=== PATIENT | male | born 2000 | race Caucasian/White ===

== ENCOUNTER 2020-11-23 13:21 | Emergency (ER) | payer OTHER ==
[~2020-11-23] VITALS: Ht 180.3 cm; Wt 71.2 kg
[2020-11-23 13:21] VITALS: BP 136/80
--- NOTE | 2020-11-23 13:21 | NUR ---
PT BROUGHT TO BED 9 VIA [facility]
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
[2020-11-23] MEDS: NACL 0.9% 1,000 ML IV ONE (14:10)
--- NOTE | 2020-11-23 14:10 | NUR ---
LABS COLLECTED AND WALKED TO LAB.
[2020-11-23 14:30] LABS: BASOPHILS % (AUTO) 0.7 % (0.0-2.0); EOSINOPHILS # (AUTO) 0.1 K/uL (0-0.4); EOSINOPHILS % (AUTO) 1.9 % (0.0-4.0); HEMATOCRIT 40.2 % (36-52); HEMOGLOBIN 13.3 g/dL (12.0-18.0); LYMPHOCYTES # (AUTO) 1.3 K/uL (2.0-11.5); MEAN CORPUSCULAR HEMOGLOBIN 29 pg (27-31); MEAN CORPUSCULAR HGB CONC 33 g/dL (33-37); MEAN CORPUSCULAR VOLUME 86.6 fL (80-94); MONOCYTES # (AUTO) 0.4 K/uL (0.8-1.0); MONOCYTES % (AUTO) 5.2 % (1.7-9.3); NEUTROPHILS # (AUTO) 5.6 K/uL (1.8-7.7); NEUTROPHILS % (AUTO) 74.2 % (42.2-75.2); PLATELET COUNT (AUTO) 300 K/uL (140-450); RED BLOOD CELL COUNT(AUTO) 4.64 MIL/uL (4.20-6.10); RED CELL DISTRIBUTION WIDTH 13.9 % (11.6-13.7); WHITE BLOOD COUNT (AUTO) 7.5 K/uL (4.8-10.8)
[2020-11-23] MEDS ORDERED: levETIRAcetam 100 MG/ML VIAL IV ONE (14:49)
[2020-11-23 14:56] LABS: ANION GAP 16.6 (8-16); CARBON DIOXIDE 24.6 mmol/L (21-32); POTASSIUM 4.2 mmol/L (3.5-5.1)
[2020-11-23 14:57] LABS: ALBUMIN 4.3 g/dL (3.4-5.0); TOTAL BILIRUBIN 0.4 mg/dL (0.0-1.0)
--- NOTE | 2020-11-23 14:58 | NUR ---
PT HAVING FULL TONIC CLONIC SEIZURE, PT POSITIONED TO SIDE. DR FAIRCHILD MADE AWARE. WILL MEDICATE ORDERED
[2020-11-23] MEDS ORDERED: LORazepam 2 MG/ML VIAL ONE (14:59)
[2020-11-23] MEDS: levETIRAcetam 1,000 MG in NACL 0.9% 100 ML IV ONE (15:13)
[2020-11-23] MEDS: LORazepam 2 MG/ML VIAL IVP ONE (15:22)
--- NOTE | 2020-11-23 15:50 | NUR ---
BUFFY VIRGEN WALKED TO LAB.
--- NOTE | 2020-11-23 15:59 | NUR ---
SPOKE WITH RIGOBERTO BLAIR, PTS MOTHER. CALL BACK NUMBER: [phone]
--- NOTE | 2020-11-23 17:09 | NUR ---
PT RESTING IN BED BUT IS LETHARGIC. PT AROUSABLE, VSS. WILL CONTINUE TO MONITOR
[2020-11-23 18:01] VITALS: BP 107/62
--- NOTE | 2020-11-23 18:10 | NUR ---
PT AMBULATED WITHOUT ASSISTANCE. STEADY GAIT. PT AMBULATED TO RESTROOM. PT GIVEN FOOD AND CUP OF WATER
[2020-11-23] MEDS ORDERED: KEP500 PO ×2 (18:20→18:23)
[2020-11-23 18:44] LABS: MAGNESIUM 2.1 mg/dL (1.8-2.4)
--- NOTE | 2020-11-23 18:45 | NUR ---
SPOKE WITH PATIENTS AUNT MIRANDA: [phone] EARLIER FOR UPDATE. SPOKE WITH AUNT WHILE DICHARGING PT FOR UPDATE AND DISCUSSED DISCHARGE PAPERWORK.
--- NOTE | 2020-11-23 18:47 | NUR ---
Patient discharged with v/s stable. Written and verbal after care instructions ABOUT EPILEPSY given and explained. Patient alert, oriented and verbalized understanding of instructions. Ambulatory with steady gait. All questions addressed prior to discharge. ID band removed. Patient advised to follow up with PMD. Rx of KEPPRA given. Patient educated on indication of medication including possible reaction and side effects. Opportunity to ask questions provided and answered.
--- NOTE | 2020-11-23 18:48 | NUR ---
Patient given written and verbal discharge instructions and verbalizes understanding. Given copies of tests performed during visit. Patient is awake, alert and oriented. Ambulatory with steady gait. Refuses offer of custodial placement. Given list of available shelters in surrounding areas. PT GIVEN HOMELESS PACKET, FOOD, AND BUS PASS. PT SIGNED HOMELESS WAIVER
[2020-11-23 19:11] LABS: CREATINE KINASE MB 5.1 ng/mL (0-3.6)
--- NOTE | 2020-11-25 12:17 | NUR ---
called pt left v-mail to call back [facility] Addendum: 11/25/20 at 1218 by [email or web address] regarding lactic acid 32.9 Dr Good notifted
== END 2020-11-23 18:48 | disposition home or self-care (01) ==
LOC: MED 13:21
DX: G40.909 Epilepsy, unspecified, not intractable, without status epilepticus (principal); Z20.822 Contact with and (suspected) exposure to COVID-19; F12.90 Cannabis use, unspecified, uncomplicated; Z91.19 Patient's noncompliance with other medical treatment and regimen; Z79.899 Other long term (current) drug therapy
CPT/HCPCS: 36415; 80053; 82550; 82553; 83605; 83735; 85025; 87426; 93005; 96361; 96365; 96375; 99284; J1953; J2060; J7030